=== PATIENT | female | born 1950 | race Caucasian/White ===

== ENCOUNTER 2016-02-18 18:01 | Outpatient (RCR) | payer MEDICARE ==
[~2016-02-18] VITALS: Ht 160 cm; Wt 90.9 kg
[~2016-02-18 18:01] MED LIST: CEPHALEXIN500 M2 PO; CLARITIN 1010 MG/TAB PO; CLARITIN-D 10 M1 T24 PO; DECADRON 4MG TAB4 MG PO; NEULASTA6 MG/0.6 M SC; [UNRECOGNIZED DRUG - OTHER]
[2016-02-18 18:18] VITALS: BP 166/86
[2016-02-19 06:05] VITALS: BP 137/89
--- NOTE | 2016-02-19 07:10 | NUR ---
WHEN FLUSHING LINE WITH SALINE PT REPORTED MILD DISCOMFORT, STATED SHE COULD NOT TASTE SALINE LIKE NORMAL. PT STILL HAS BLOOD RETURN. FLUSHED WITH SALINE AGAIN SLOWLY. STILL UNCOMFORTABLE FOR PT. HEPARINIZED LINE AND DEACCESSED PER PT REQUEST. SMALL 1.5CM AREA OF COOLNESS SUPERIOR TO PORT HUB. PT REPORTS THIS IS WHERE SORENESS IS. POSSIBLE INFILTRATION FROM SALINE FLUSH, DESPITE BLOOD RETURN. PT IS TO RETURN THIS EVENING AGAIN. NURSING WILL REASSESS AT THAT TIME. PT IS AGREEABLE TO THIS PLAN.
[2016-02-19 07:15] VITALS: BP 132/87
[2016-02-19 18:35] VITALS: BP 146/92
[2016-02-19 19:49] VITALS: BP 150/86
[2016-02-20 05:55] VITALS: BP 145/90
[2016-02-20 06:31] VITALS: BP 149/91
[2016-02-20 18:00] VITALS: BP 151/90
[2016-02-20 18:36] VITALS: BP 142/80
[2016-02-21 06:28] VITALS: BP 143/86
[2016-02-21 07:04] VITALS: BP 141/87
[2016-02-21 18:00] VITALS: BP 135/83
[2016-02-21] MEDS ORDERED: ACETAMINOPHEN-H1 TA2 PO (18:17)
[2016-02-21] MEDS ORDERED: CYCLOBENZ5 MG PO (18:19)
[2016-02-22 06:07] VITALS: BP 128/79
[2016-02-22 06:42] VITALS: BP 143/76
[2016-02-22 18:15] VITALS: BP 133/74
[2016-02-23 06:06] VITALS: BP 161/88
[2016-02-23 06:37] VITALS: BP 133/91
--- NOTE | 2016-02-23 06:54 | NUR ---
Patient requested that her port remain accessed until after her follow up appointment at the clinic to see if her IV antibiotic therapy will be continued. Patient instructed to return and notify nursing staff either way. Patient indicates understanding.
[2016-02-23 17:59] VITALS: BP 166/85
[2016-02-23 18:36] VITALS: BP 145/83
[2016-02-24 06:03] VITALS: BP 129/76
[2016-02-24 06:41] VITALS: BP 136/81
[2016-02-24 18:00] VITALS: BP 143/82
[2016-02-25 05:58] VITALS: BP 135/86
[2016-02-25 06:35] VITALS: BP 165/92
[2016-02-25 18:26] VITALS: BP 129/84
[2016-02-25 19:09] VITALS: BP 132/86
[2016-02-26 06:05] VITALS: BP 124/85
[2016-02-26 18:13] VITALS: BP 155/84
[2016-02-26 18:54] VITALS: BP 143/76
[2016-02-27 05:55] VITALS: BP 156/81
[2016-02-27 06:50] VITALS: BP 146/86
[2016-02-27 18:10] VITALS: BP 172/88
[2016-02-27 18:57] VITALS: BP 150/89
[2016-02-28 05:50] VITALS: BP 137/80
[2016-02-28 06:40] VITALS: BP 146/84
[2016-04-10] MEDS ORDERED: PENICILLIN-VK250 MG PO (05:46)
== END 2016-02-28 07:30 | disposition home or self-care (01) ==
LOC: AMSURD 18:01
DX: L03.113 Cellulitis of right upper limb (principal)
CPT/HCPCS: A4301; J0712; J1644

== ENCOUNTER 2016-03-11 19:06 | Outpatient (RCR) | payer MEDICARE ==
[~2016-03-11 19:06] MED LIST changes: -PENICILLIN-VK250 MG PO
--- NOTE | 2016-03-11 20:05 | NUR ---
LAB DRAW OBTAINED FROM PORT START AND DELIVERED TO LAB PERSONNEL.
[2016-03-11 20:25] VITALS: BP 146/86
[2016-03-11 20:55] VITALS: BP 147/85
[2016-03-12 11:56] VITALS: BP 156/92
[2016-03-12 12:19] VITALS: BP 127/83
[2016-03-13 09:15] VITALS: BP 137/86
[2016-03-13 09:49] VITALS: BP 137/86
[2016-03-13 10:01] VITALS: BP 137/80
[2016-03-14 09:34] VITALS: BP 142/77
[2016-03-14 09:40] VITALS: BP 130/70
[2016-03-15 09:00] VITALS: BP 167/69
[2016-03-16 09:00] VITALS: BP 136/78
[2016-03-16 09:35] VITALS: BP 137/79
[2016-03-17 08:56] VITALS: BP 128/84
[2016-03-18 06:45] VITALS: BP 149/94
[2016-03-19 07:46] VITALS: BP 133/76
[2016-03-20 07:52] VITALS: BP 122/85
[2016-03-20 08:40] VITALS: BP 141/77
[2016-03-21 08:56] VITALS: BP 120/69
[2016-03-21 09:29] VITALS: BP 169/87
[2016-03-22 09:02] VITALS: BP 122/73
[2016-03-23 10:12] VITALS: BP 128/76
[2016-03-23 10:13] VITALS: BP 122/77
[2016-03-24 08:50] VITALS: BP 139/83
--- NOTE | 2016-03-24 09:56 | NUR ---
Unable to get enough blood return for lab draw today, lab came down to 101 and krystina blood from peripheral site, patient left before this nurse was able to grab a second set of vital signs, vital signs prior to treatment were stable
[2016-03-25 07:47] VITALS: BP 140/91
[2016-03-25 08:27] VITALS: BP 148/93
[2016-03-26 08:27] VITALS: BP 132/98
[2016-03-26 09:24] VITALS: BP 133/81
[2016-03-27 08:59] VITALS: BP 134/81
[2016-03-27 09:30] VITALS: BP 139/82
[2016-03-28 08:53] VITALS: BP 168/102
[2016-03-28 09:31] VITALS: BP 155/95
[2016-03-29 09:00] VITALS: BP 126/81
[2016-03-29 09:34] VITALS: BP 127/95
[2016-03-30 09:26] VITALS: BP 156/88
[2016-03-30 10:04] VITALS: BP 141/80
[2016-03-31 07:58] VITALS: BP 133/77
[2016-03-31 11:07] VITALS: BP 136/84
[2016-04-01 09:06] VITALS: BP 154/83
[2016-04-01 09:52] VITALS: BP 137/84
[2016-04-02 08:55] VITALS: BP 134/96
[2016-04-03 08:58] VITALS: BP 132/72
[2016-04-03 09:35] VITALS: BP 136/83
[2016-04-04 09:10] VITALS: BP 129/80
[2016-04-04 09:53] VITALS: BP 149/85
[2016-04-05 09:00] VITALS: BP 142/78
[2016-04-05 09:35] VITALS: BP 145/86
[2016-04-06 09:07] VITALS: BP 156/82
[2016-04-06 09:50] VITALS: BP 131/49
[2016-04-07 09:35] VITALS: BP 129/81
[2016-04-07 10:07] VITALS: BP 136/75
[2016-04-08 07:58] VITALS: BP 128/77
--- NOTE | 2016-04-08 08:11 | NUR ---
PATIENT ARRIVES EARLY FOR IV ANTIBIOTICS. SHE HAS AN APPT WITH HER DOCTOR THIS AM AND SHE IS HOPING HE WILL HAVE GOOD NEWS FOR HER AND WILL DISCONTINUE HER OUTPATIENT IV TX. PORT-A-CATH NEEDLE TO BE CHANGED TODAY. WILL OPT TO DC CURRENT ONE AND RE-ACCESS TOMORROW IF NEED TO CONTINUE.
[2016-04-10] MEDS ORDERED: PENICILLIN-VK250 MG PO (05:46)
== END 2016-04-08 09:30 | disposition home or self-care (01) ==
LOC: AMSURD 19:06
DX: L03.113 Cellulitis of right upper limb (principal); A40.8 Other streptococcal sepsis; B95.4 Other streptococcus as the cause of diseases classified elsewhere; Z45.2 Encounter for adjustment and management of vascular access device; R65.20 Severe sepsis without septic shock
CPT/HCPCS: J0696; J1644

== ENCOUNTER → 2016-03-11 | Outpatient (CLI) | payer MEDICARE ==
[~2016-03-11] MED LIST changes: +ACETAMINOPHEN-H1 TA2 PO; +CYCLOBENZ5 MG PO; +PENICILLIN-VK250 MG PO
== END ==
LOC: LAB 10:36
DX: L03.113 Cellulitis of right upper limb (principal)

== ENCOUNTER → 2016-03-19 | Outpatient (CLI) | payer MEDICARE ==
[~2016-03-19] MED LIST changes: +PENICILLIN-VK250 MG PO
== END ==
LOC: LAB 08:03
DX: L03.90 Cellulitis, unspecified (principal)

== ENCOUNTER → 2016-03-24 | Outpatient (CLI) | payer MEDICARE | LOC: LAB 08:55 | DX: C54.1 Malignant neoplasm of endometrium (principal) ==

== ENCOUNTER → 2016-03-25 | Outpatient (CLI) | payer MEDICARE | LOC: LAB 11:10 | DX: L03.90 Cellulitis, unspecified (principal) ==

== ENCOUNTER → 2016-03-30 | Outpatient (CLI) | payer MEDICARE | LOC: RAD 08:54 | DX: C54.1 Malignant neoplasm of endometrium (principal); K43.9 Ventral hernia without obstruction or gangrene | CPT/HCPCS: Q9967 ==

== ENCOUNTER → 2016-03-31 | Outpatient (CLI) | payer MEDICARE | LOC: LAB 07:58 | DX: L03.90 Cellulitis, unspecified (principal) ==

== ENCOUNTER → 2016-04-07 | Outpatient (CLI) | payer MEDICARE | LOC: LAB 09:38 | DX: L03.90 Cellulitis, unspecified (principal) ==

== ENCOUNTER 2016-04-09 21:40 | Emergency (ER) | payer MEDICARE ==
[~2016-04-09 21:40] MED LIST changes: -PENICILLIN-VK250 MG PO
[2016-04-10] MEDS ORDERED: PENICILLIN-VK250 MG PO (05:46)
== END 2016-04-09 23:55 | disposition home or self-care (01) ==
LOC: ED 21:40
DX: I97.2 Postmastectomy lymphedema syndrome (principal); L03.113 Cellulitis of right upper limb; Z85.3 Personal history of malignant neoplasm of breast; Z85.40 Personal history of malignant neoplasm of unspecified female genital organ; Z90.11 Acquired absence of right breast and nipple
CPT/HCPCS: J0696; J1644

== ENCOUNTER → 2016-04-10 | Outpatient (CLI) | payer MEDICARE ==
[~2016-04-10] MED LIST changes: +PENICILLIN-VK250 MG PO
[2016-04-10 18:53] VITALS: BP 130/85
[2016-04-10 19:23] VITALS: BP 131/83
[2016-04-11 19:56] VITALS: BP 137/81
== END ==
LOC: AMSURD 18:30
DX: I97.2 Postmastectomy lymphedema syndrome (principal); L03.113 Cellulitis of right upper limb
CPT/HCPCS: J0696; J1644

== ENCOUNTER → 2016-04-14 | Outpatient (CLI) | payer MEDICARE | LOC: LAB 18:25 | DX: L03.90 Cellulitis, unspecified (principal) ==

== ENCOUNTER → 2016-05-06 | Outpatient (CLI) | payer MEDICARE | LOC: LAB 08:23 | DX: I89.0 Lymphedema, not elsewhere classified (principal) ==

== ENCOUNTER → 2016-07-25 | Outpatient (CLI) | payer MEDICARE ==
[2016-04-15 12:19] VITALS: BP 155/78
== END ==
LOC: LAB 10:10
DX: C54.9 Malignant neoplasm of corpus uteri, unspecified (principal)

== ENCOUNTER → 2016-07-26 | Outpatient (CLI) | payer MEDICARE ==
[2016-04-15 12:19] VITALS: BP 155/78
== END ==
LOC: RAD 09:44
DX: C54.1 Malignant neoplasm of endometrium (principal)
CPT/HCPCS: Q9967

== ENCOUNTER → 2016-11-28 | Outpatient (CLI) | payer MEDICARE ==
[2016-04-15 12:19] VITALS: BP 155/78
== END ==
LOC: RAD 11-23 09:00
DX: C54.1 Malignant neoplasm of endometrium (principal)
CPT/HCPCS: Q9967

== ENCOUNTER → 2016-11-30 | Outpatient (CLI) | payer MEDICARE ==
[2016-04-15 12:19] VITALS: BP 155/78
== END ==
LOC: LAB 07:39
DX: C55 Malignant neoplasm of uterus, part unspecified (principal)

== ENCOUNTER 2017-01-07 08:23 | Outpatient (RCR) | payer MEDICARE ==
[~2017-01-07] VITALS: Ht 160 cm; Wt 90.9 kg
[2017-01-07] MEDS ORDERED: NEURONTIN300 MG/CAP (08:31)
[2017-01-07 08:33] VITALS: BP 131/81
[2017-01-08 08:13] VITALS: BP 138/81
[2017-01-09 08:19] VITALS: BP 158/87
[2017-01-10 08:55] VITALS: BP 128/78
[2017-01-11 08:26] VITALS: BP 133/81
[2017-01-11 09:05] VITALS: BP 144/85
--- NOTE | 2017-01-11 09:05 | NUR ---
Pt leaves facility ambulatory.
[2017-01-12 08:12] VITALS: BP 131/69
[2017-01-12 08:39] VITALS: BP 148/79
[2017-01-13 08:05] VITALS: BP 141/74
[2017-01-14 08:09] VITALS: BP 138/83
[2017-01-15 08:19] VITALS: BP 136/77
[2017-01-15 08:46] VITALS: BP 138/77
[2017-01-16 08:40] VITALS: BP 128/80
[2017-01-16 09:23] VITALS: BP 129/82
== END 2017-01-16 10:00 | disposition home or self-care (01) ==
LOC: AMSURD 08:23
DX: L03.113 Cellulitis of right upper limb (principal); E83.42 Hypomagnesemia
CPT/HCPCS: J0696; J1644

== ENCOUNTER → 2017-01-16 | Outpatient (CLI) | payer MEDICARE ==
[2017-01-15 08:46] VITALS: BP 138/77
[~2017-01-16] MED LIST changes: +NEURONTIN300 MG/CAP
[2017-01-16 11:48] LABS: HEMATOCRIT 39.3 % (37.0-47.0); HEMOGLOBIN 12.6 g/dL (12.5-16.0); RED BLOOD COUNT 3.96 M/mm3 (4.10-5.30); RED CELL DISTRIBUTION WIDTH 13.5 % (11.5-14.5); WHITE BLOOD COUNT 5.3 K/mm3 (4.8-10.8)
== END ==
LOC: LAB 08:51
PROVIDERS: Internal Medicine
DX: L03.90 Cellulitis, unspecified (principal)

== ENCOUNTER → 2017-04-05 | Outpatient (CLI) | payer MEDICARE | LOC: RAD 03-29 09:00 | DX: C54.1 Malignant neoplasm of endometrium (principal); I72.8 Aneurysm of other specified arteries; Z90.49 Acquired absence of other specified parts of digestive tract; Z90.710 Acquired absence of both cervix and uterus | CPT/HCPCS: Q9967 ==

== ENCOUNTER → 2017-10-04 | Outpatient (CLI) | payer MEDICARE ==
[2017-10-04 14:15] LABS: EOS # 0.2 (0.04-0.40); EOS % 3.9 % (1.0-5.0); HEMATOCRIT 40.7 % (37.0-47.0); HEMOGLOBIN 13.2 g/dL (12.5-16.0); LYMPH# 1.3 (1.50-4.00); MEAN CELL VOLUME 100 fl (78-100); MEAN CORPUSCULAR HEMOGLOBIN 32 pg (27-31); MEAN CORPUSCULAR HGB CONC 32 g/dL (33-37); MEAN PLATELET VOLUME 10.3 fl (7.4-10.4); MONO # 0.6 (0.20-0.80); NEU # 3.5 (1.40-6.50); PLATELET COUNT 167 K/mm3 (130-400); RED BLOOD COUNT 4.09 M/mm3 (4.10-5.30); RED CELL DISTRIBUTION WIDTH 13.7 % (11.5-14.5); WHITE BLOOD COUNT 5.6 K/mm3 (4.8-10.8)
[2017-10-04 14:23] LABS: BUN/CREATININE RATIO 22.1 (6.0-26.0); CALCIUM 9.4 mg/dL (8.4-10.2); POTASSIUM 4.3 mmol/L (3.6-5.0); TOTAL BILIRUBIN 1.1 mg/dL (0.2-1.3); TOTAL PROTEIN 7.1 g/dL (6.3-8.2)
== END ==
LOC: LAB 13:59
PROVIDERS: Internal Medicine
DX: C55 Malignant neoplasm of uterus, part unspecified (principal)

== ENCOUNTER → 2017-10-06 | Outpatient (CLI) | payer MEDICARE | LOC: RAD 08:44 | DX: Z08 Encounter for follow-up examination after completed treatment for malignant neoplasm (principal); Z85.42 Personal history of malignant neoplasm of other parts of uterus; Z98.890 Other specified postprocedural states; N32.89 Other specified disorders of bladder; N28.1 Cyst of kidney, acquired; K22.8 Other specified diseases of esophagus; K57.30 Diverticulosis of large intestine without perforation or abscess without bleeding; I72.8 Aneurysm of other specified arteries ==

== ENCOUNTER → 2018-04-19 | Outpatient (CLI) | payer MEDICARE ==
[2018-04-20 11:25] LABS: EOS # 0.2 (0.04-0.40); EOS % 4.3 % (1.0-5.0); HEMATOCRIT 40.1 % (37.0-47.0); HEMOGLOBIN 12.8 g/dL (12.5-16.0); LYMPH# 1.5 (1.50-4.00); MEAN CELL VOLUME 97 fl (78-100); MEAN CORPUSCULAR HEMOGLOBIN 31 pg (27-31); MEAN CORPUSCULAR HGB CONC 32 g/dL (33-37); MEAN PLATELET VOLUME 10.5 fl (7.4-10.4); MONO # 0.5 (0.20-0.80); NEU # 2.6 (1.40-6.50); PLATELET COUNT 154 K/mm3 (130-400); RED BLOOD COUNT 4.12 M/mm3 (4.10-5.30); RED CELL DISTRIBUTION WIDTH 13.5 % (11.5-14.5); WHITE BLOOD COUNT 4.9 K/mm3 (4.8-10.8)
[2018-04-20 12:03] LABS: ALBUMIN 4.1 g/dL (3.5-5.0); CALCIUM 9.6 mg/dL (8.4-10.2); POTASSIUM 4.1 mmol/L (3.6-5.0); TOTAL PROTEIN 7.2 g/dL (6.3-8.2)
== END ==
LOC: LAB 09:49
PROVIDERS: Internal Medicine
DX: C54.1 Malignant neoplasm of endometrium (principal)

== ENCOUNTER → 2018-04-23 | Outpatient (CLI) | payer MEDICARE | LOC: RAD 09:16 | DX: C54.1 Malignant neoplasm of endometrium (principal) | CPT/HCPCS: Q9967 ==

== ENCOUNTER → 2018-10-18 | Outpatient (CLI) | payer MEDICARE | LOC: RAD 08:37 | DX: C54.1 Malignant neoplasm of endometrium (principal); N20.0 Calculus of kidney; N28.1 Cyst of kidney, acquired; K76.0 Fatty (change of) liver, not elsewhere classified; K57.30 Diverticulosis of large intestine without perforation or abscess without bleeding; K43.9 Ventral hernia without obstruction or gangrene; I72.8 Aneurysm of other specified arteries; Z90.710 Acquired absence of both cervix and uterus | CPT/HCPCS: Q9967 ==

== ENCOUNTER → 2018-10-23 | Outpatient (CLI) | payer MEDICARE ==
[2018-10-23 08:36] LABS: EOS # 0.3 (0.04-0.40); EOS % 5.5 % (1.0-5.0); HEMATOCRIT 40.5 % (37.0-47.0); LYMPH# 1.8 (1.50-4.00); MEAN CELL VOLUME 97 fl (78-100); MEAN CORPUSCULAR HEMOGLOBIN 31 pg (27-31); MEAN CORPUSCULAR HGB CONC 32 g/dL (33-37); MEAN PLATELET VOLUME 11.3 fl (7.4-10.4); MONO # 0.6 (0.20-0.80); NEU # 3.1 (1.40-6.50); PLATELET COUNT 175 K/mm3 (130-400); RED BLOOD COUNT 4.17 M/mm3 (4.10-5.30); RED CELL DISTRIBUTION WIDTH 13.9 % (11.5-14.5); WHITE BLOOD COUNT 5.8 K/mm3 (4.8-10.8)
[2018-10-23 08:40] LABS: ALBUMIN 3.6 g/dL (3.4-4.8)
[2018-10-23 08:41] LABS: POTASSIUM 4.2 mmol/L (3.5-5.1)
[2018-10-23 08:42] LABS: CALCIUM 9.3 mg/dL (8.3-10.5)
[2018-10-23 08:43] LABS: TOTAL PROTEIN 6.8 g/dL (6.2-8.1)
[2018-10-23 08:45] LABS: TOTAL BILIRUBIN 1.1 mg/dL (0.2-1.2)
== END ==
LOC: LAB 07:59
PROVIDERS: Internal Medicine
DX: C54.1 Malignant neoplasm of endometrium (principal)

== ENCOUNTER → 2019-01-30 | Outpatient (CLI) | payer MEDICARE | LOC: LAB 15:14 | DX: N30.91 Cystitis, unspecified with hematuria (principal) ==

== ENCOUNTER → 2019-04-11 | Outpatient (CLI) | payer MEDICARE | LOC: LAB 15:00 | DX: C54.1 Malignant neoplasm of endometrium (principal) ==

== ENCOUNTER → 2019-04-15 | Outpatient (CLI) | payer MEDICARE ==
[2019-04-11 15:15] LABS: EOS # 0.2 (0.04-0.40); EOS % 3.3 % (1.0-5.0); HEMATOCRIT 41.3 % (37.0-47.0); HEMOGLOBIN 13.5 g/dL (12.5-16.0); LYMPH# 2.2 (1.50-4.00); MEAN CELL VOLUME 97 fl (78-100); MEAN CORPUSCULAR HEMOGLOBIN 32 pg (27-31); MEAN CORPUSCULAR HGB CONC 33 g/dL (33-37); MEAN PLATELET VOLUME 10.1 fl (7.4-10.4); MONO # 0.5 (0.20-0.80); PLATELET COUNT 172 K/mm3 (130-400); RED BLOOD COUNT 4.26 M/mm3 (4.10-5.30); RED CELL DISTRIBUTION WIDTH 13.2 % (11.5-14.5)
[2019-04-11 15:23] LABS: ALBUMIN 4.1 g/dL (3.4-4.8)
[2019-04-11 15:24] LABS: POTASSIUM 3.9 mmol/L (3.5-5.1)
[2019-04-11 15:25] LABS: CALCIUM 9.3 mg/dL (8.3-10.5)
[2019-04-11 15:26] LABS: TOTAL PROTEIN 7.2 g/dL (6.2-8.1)
[2019-04-11 15:28] LABS: TOTAL BILIRUBIN 1.4 mg/dL (0.2-1.2)
== END ==
LOC: RAD 08:52
PROVIDERS: Internal Medicine
DX: C54.1 Malignant neoplasm of endometrium (principal); N05.9 Unspecified nephritic syndrome with unspecified morphologic changes; Z90.49 Acquired absence of other specified parts of digestive tract
CPT/HCPCS: Q9967

== ENCOUNTER 2019-04-22 18:58 | Emergency (ER) | payer MEDICARE ==
[2019-04-22] MEDS ORDERED: ATORVASTATIN CA10 MG PO (19:08)
[2019-04-22] MEDS ORDERED: OTEZLA30 MG PO (19:08)
[2019-04-22] MEDS ORDERED: VITAMIN D35000 UNIT PO (19:09)
[2019-04-22 20:08] LABS: EOS # 0.2 (0.04-0.40); EOS % 1.2 % (1.0-5.0); HEMATOCRIT 41.4 % (37.0-47.0); HEMOGLOBIN 13.4 g/dL (12.5-16.0); LYMPH# 1.7 (1.50-4.00); MEAN CELL VOLUME 96 fl (78-100); MEAN CORPUSCULAR HEMOGLOBIN 31 pg (27-31); MEAN CORPUSCULAR HGB CONC 32 g/dL (33-37); MEAN PLATELET VOLUME 10.5 fl (7.4-10.4); MONO # 1.2 (0.20-0.80); PLATELET COUNT 182 K/mm3 (130-400); WHITE BLOOD COUNT 12.9 K/mm3 (4.8-10.8)
[2019-04-22 20:17] LABS: NEU # 9.8 (1.40-6.50)
[2019-04-22 20:19] LABS: ALBUMIN 3.8 g/dL (3.4-4.8)
[2019-04-22 20:22] LABS: TOTAL PROTEIN 7.4 g/dL (6.2-8.1)
[2019-04-22 20:24] LABS: TOTAL BILIRUBIN 0.9 mg/dL (0.2-1.2)
[2019-04-22 20:57] LABS: URINE APPEARANCE CLOUDY; URINE BILIRUBIN NEGATIVE (NEGATIVE); URINE BLOOD 50 ery/uL (NEGATIVE); URINE COLOR YELLOW; URINE KETONE NEGATIVE (NEGATIVE); URINE LEUKOCYTE ESTERASE 1+ (NEGATIVE); URINE NITRATE NEGATIVE (NEGATIVE); URINE PROTEIN(semi-quant) 2+ mg/dL (NEGATIVE); URINE UROBILINOGEN NORMAL (NORMAL); URINE WBC 16-30 /hpf (0-3)
[2019-04-22 22:41] VITALS: BP 143/81
== END 2019-04-22 22:30 | disposition short-term general hospital (02) ==
LOC: ED 18:58
PROVIDERS: Nurse Practitioner
DX: N20.0 Calculus of kidney (principal); I10 Essential (primary) hypertension; Z85.038 Personal history of other malignant neoplasm of large intestine; Z85.3 Personal history of malignant neoplasm of breast; Z85.42 Personal history of malignant neoplasm of other parts of uterus; Z90.49 Acquired absence of other specified parts of digestive tract; Z90.710 Acquired absence of both cervix and uterus
CPT/HCPCS: A4216; J0696; J1885; J2405; J3010; J7030; Q9967

== ENCOUNTER → 2019-10-30 | Outpatient (CLI) | payer MEDICARE ==
[~2019-10-30] MED LIST changes: +ATORVASTATIN CA10 MG PO; +OTEZLA30 MG PO; +VITAMIN D35000 UNIT PO
[2019-10-30 13:09] LABS: EOS # 0.2 (0.04-0.40); EOS % 2.3 % (1.0-5.0); HEMATOCRIT 40.2 % (37.0-47.0); HEMOGLOBIN 13.2 g/dL (12.5-16.0); LYMPH# 1.9 (1.50-4.00); MEAN CELL VOLUME 98 fl (78-100); MEAN CORPUSCULAR HEMOGLOBIN 32 pg (27-31); MEAN CORPUSCULAR HGB CONC 33 g/dL (33-37); MEAN PLATELET VOLUME 10.2 fl (7.4-10.4); MONO # 0.7 (0.20-0.80); NEU # 4.5 (1.40-6.50); PLATELET COUNT 192 K/mm3 (130-400); RED BLOOD COUNT 4.09 M/mm3 (4.10-5.30); RED CELL DISTRIBUTION WIDTH 13.7 % (11.5-14.5); WHITE BLOOD COUNT 7.3 K/mm3 (4.8-10.8)
[2019-10-30 13:19] LABS: ALBUMIN 4.1 g/dL (3.4-4.8)
[2019-10-30 13:21] LABS: CALCIUM 9.9 mg/dL (8.3-10.5)
[2019-10-30 13:22] LABS: TOTAL PROTEIN 7.2 g/dL (6.2-8.1)
[2019-10-30 13:24] LABS: TOTAL BILIRUBIN 1.2 mg/dL (0.2-1.2)
== END ==
LOC: RAD 12:49
PROVIDERS: Internal Medicine
DX: Z85.42 Personal history of malignant neoplasm of other parts of uterus (principal); Z90.710 Acquired absence of both cervix and uterus
CPT/HCPCS: Q9967

== ENCOUNTER → 2020-02-18 | Outpatient (CLI) | payer MEDICARE ==
[2020-02-18 14:52] LABS: EOS # 0.3 (0.04-0.40); EOS % 4.3 % (1.0-5.0); HEMATOCRIT 39.9 % (37.0-47.0); HEMOGLOBIN 12.6 g/dL (12.5-16.0); LYMPH# 1.4 (1.50-4.00); MEAN CELL VOLUME 99 fl (78-100); MEAN CORPUSCULAR HEMOGLOBIN 31 pg (27-31); MEAN CORPUSCULAR HGB CONC 32 g/dL (33-37); MEAN PLATELET VOLUME 10.1 fl (7.4-10.4); MONO # 0.5 (0.20-0.80); NEU # 3.7 (1.40-6.50); PLATELET COUNT 168 K/mm3 (130-400); RED BLOOD COUNT 4.05 M/mm3 (4.10-5.30); RED CELL DISTRIBUTION WIDTH 13.3 % (11.5-14.5); WHITE BLOOD COUNT 5.9 K/mm3 (4.8-10.8)
[2020-02-18 14:55] LABS: ALBUMIN 3.9 g/dL (3.4-4.8); POTASSIUM 4.6 mmol/L (3.5-5.1)
[2020-02-18 14:56] LABS: CALCIUM 9.2 mg/dL (8.3-10.5)
[2020-02-18 14:57] LABS: TOTAL PROTEIN 6.5 g/dL (6.2-8.1)
[2020-02-18 14:59] LABS: TOTAL BILIRUBIN 1.3 mg/dL (0.2-1.2)
== END ==
LOC: LAB 14:25
PROVIDERS: Nurse Practitioner
DX: R22.31 Localized swelling, mass and lump, right upper limb (principal)

== ENCOUNTER → 2021-01-06 | Outpatient (CLI) | payer MEDICARE ==
[2021-01-06 10:00] LABS: BASO # 0.03 K/mm3 (0.02-0.10); EOS % 3.1 % (1.0-5.0); HEMATOCRIT 47.1 % (37.0-47.0); HEMOGLOBIN 14.9 g/dL (12.5-16.0); LYMPH# 1.93 K/mm3 (1.50-4.00); MEAN CELL VOLUME 99 fl (78-100); MEAN CORPUSCULAR HEMOGLOBIN 31 pg (27-31); MEAN CORPUSCULAR HGB CONC 32 g/dL (33-37); MEAN PLATELET VOLUME 10.2 fl (7.4-10.4); MONO # 0.56 K/mm3 (0.20-0.80); NEU # 3.62 K/mm3 (1.40-6.50); PLATELET COUNT 184 K/mm3 (130-400); RED BLOOD COUNT 4.76 M/mm3 (4.10-5.30); RED CELL DISTRIBUTION WIDTH 13.2 % (11.5-14.5); WHITE BLOOD COUNT 6.4 K/mm3 (4.8-10.8)
[2021-01-06 10:05] LABS: ALBUMIN 4.3 g/dL (3.4-4.8)
[2021-01-06 10:06] LABS: CALCIUM 10.5 mg/dL (8.3-10.5)
[2021-01-06 10:07] LABS: TOTAL PROTEIN 7.6 g/dL (6.2-8.1)
[2021-01-06 10:09] LABS: TOTAL BILIRUBIN 1.6 mg/dL (0.2-1.2)
== END ==
LOC: LAB 09:18
PROVIDERS: Internal Medicine
DX: E11.9 Type 2 diabetes mellitus without complications (principal); E78.00 Pure hypercholesterolemia, unspecified; E55.9 Vitamin D deficiency, unspecified; M81.6 Localized osteoporosis [Lequesne]

== ENCOUNTER → 2021-05-29 | Outpatient (CLI) | payer MEDICARE ==
[2021-05-29 10:34] LABS: POTASSIUM 4.2 mmol/L (3.5-5.1)
[2021-05-29 10:35] LABS: CALCIUM 10.1 mg/dL (8.3-10.5)
== END ==
LOC: LAB 09:10
DX: I72.8 Aneurysm of other specified arteries (principal); E78.00 Pure hypercholesterolemia, unspecified

== ENCOUNTER 2021-09-16 14:53 | Emergency (ER) | payer MEDICARE ==
[2021-09-16] MEDS ORDERED: GLUCOTROL 5M5 MG/TAB PO (15:08)
[2021-09-16] MEDS ORDERED: MELOXICAM15 MG PO (15:08)
[2021-09-16] MEDS ORDERED: ALENDRONATE SOD70 MG PO (15:08)
[2021-09-16 16:14] LABS: BASO # 0.02 K/mm3 (0.02-0.10); HEMATOCRIT 44.4 % (37.0-47.0); HEMOGLOBIN 14.5 g/dL (12.5-16.0); LYMPH# 0.97 K/mm3 (1.50-4.00); MEAN CELL VOLUME 96 fl (78-100); MEAN CORPUSCULAR HEMOGLOBIN 32 pg (27-31); MEAN CORPUSCULAR HGB CONC 33 g/dL (33-37); MEAN PLATELET VOLUME 10.5 fl (7.4-10.4); MONO # 0.57 K/mm3 (0.20-0.80); PLATELET COUNT 173 K/mm3 (130-400); RED BLOOD COUNT 4.61 M/mm3 (4.10-5.30); RED CELL DISTRIBUTION WIDTH 13.1 % (11.5-14.5); WHITE BLOOD COUNT 10.2 K/mm3 (4.8-10.8)
[2021-09-16 16:21] LABS: ALBUMIN 4.1 g/dL (3.4-4.8)
[2021-09-16 16:23] LABS: CALCIUM 9.5 mg/dL (8.3-10.5)
[2021-09-16 16:24] LABS: TOTAL PROTEIN 7.6 g/dL (6.2-8.1)
[2021-09-16 16:26] LABS: TOTAL BILIRUBIN 1.9 mg/dL (0.2-1.2)
[2021-09-16] MEDS ORDERED: CLINDAMYCIN 300MG PO (16:56)
[2021-09-16 17:08] VITALS: BP 160/81
[2021-09-16 17:23] LABS: ERYTHROCYTE SEDIMENTATION RATE 35 mm/hr (0-30)
== END 2021-09-16 17:09 | disposition home or self-care (01) ==
LOC: ED 14:53
PROVIDERS: Nurse Practitioner Family
DX: A46 Erysipelas (principal); L03.113 Cellulitis of right upper limb; Z87.2 Personal history of diseases of the skin and subcutaneous tissue; Z88.1 Allergy status to other antibiotic agents
CPT/HCPCS: J0696

== ENCOUNTER 2021-11-27 10:27 | Outpatient (RCR) | payer MEDICARE ==
[2021-11-22 17:17] VITALS: BP 169/77
[2021-11-23 17:17] VITALS: BP 145/84
[2021-11-24 15:41] VITALS: BP 152/83
[2021-11-25 17:17] VITALS: BP 150/83
[2021-11-26 16:30] VITALS: BP 147/79
[~2021-11-27] VITALS: Ht 160 cm; Wt 90.9 kg
[~2021-11-27 10:27] MED LIST changes: +ALENDRONATE SOD70 MG PO; +CLINDAMYCIN 300MG PO; +GLUCOTROL 5M5 MG/TAB PO; +MELOXICAM15 MG PO; +VITAMIN D3125 MC2 PO; -VITAMIN D35000 UNIT PO
[2021-11-27 10:30] VITALS: BP 142/95
== END 2021-12-20 | disposition still patient (30) ==
LOC: AMSURD
DX: Z79.899 Other long term (current) drug therapy (principal)
CPT/HCPCS: J0696

== ENCOUNTER → 2024-01-19 | Outpatient (CLI) | payer MEDICARE ==
[2024-01-19 13:53] LABS: BASO # 0.02 K/mm3 (0.02-0.10); EOS % 3.5 % (1.0-5.0); HEMATOCRIT 40.9 % (37.0-47.0); HEMOGLOBIN 13.1 g/dL (12.5-16.0); LYMPH# 1.63 K/mm3 (1.50-4.00); MEAN CELL VOLUME 99 fl (78-100); MEAN CORPUSCULAR HEMOGLOBIN 32 pg (27-31); MEAN CORPUSCULAR HGB CONC 32 g/dL (33-37); MEAN PLATELET VOLUME 10.3 fl (7.4-10.4); MONO # 0.53 K/mm3 (0.20-0.80); NEU # 3.38 K/mm3 (1.40-6.50); PLATELET COUNT 176 K/mm3 (130-400); RED BLOOD COUNT 4.13 M/mm3 (4.10-5.30); WHITE BLOOD COUNT 5.8 K/mm3 (4.8-10.8)
[2024-01-19 14:05] LABS: ALBUMIN 3.9 g/dL (3.4-4.8)
[2024-01-19 14:07] LABS: TOTAL PROTEIN 6.7 g/dL (6.2-8.1)
[2024-01-19 14:09] LABS: TOTAL BILIRUBIN 0.9 mg/dL (0.2-1.2)
== END ==
LOC: LAB 13:35
PROVIDERS: Internal Medicine
DX: C54.1 Malignant neoplasm of endometrium (principal); C50.411 Malignant neoplasm of upper-outer quadrant of right female breast

== ENCOUNTER 2024-05-06 09:41 | Emergency (ER) | payer MEDICARE ==
[~2024-05-06] VITALS: Ht 154.9 cm; Wt 85.5 kg
[2024-05-06] MEDS ORDERED: OZEMPIC0.25 MG/02 SQ (10:01)
[2024-05-06] MEDS ORDERED: SKYRIZI600 MG/10 SQ (10:02)
[2024-05-06 10:33] LABS: BASO # 0.01 K/mm3 (0.02-0.10); EOS # 0.05 K/mm3 (0.04-0.40); EOS % 0.5 % (1.0-5.0); HEMOGLOBIN 15.4 g/dL (12.5-16.0); LYMPH# 1.23 K/mm3 (1.50-4.00); MEAN CELL VOLUME 96 fl (78-100); MEAN CORPUSCULAR HEMOGLOBIN 31 pg (27-31); MEAN CORPUSCULAR HGB CONC 33 g/dL (33-37); MEAN PLATELET VOLUME 9.8 fl (7.4-10.4); MONO # 0.65 K/mm3 (0.20-0.80); NEU # 8.66 K/mm3 (1.40-6.50); PLATELET COUNT 174 K/mm3 (130-400); RED BLOOD COUNT 4.92 M/mm3 (4.10-5.30); RED CELL DISTRIBUTION WIDTH 13.1 % (11.5-14.5); WHITE BLOOD COUNT 10.6 K/mm3 (4.8-10.8)
[2024-05-06 10:45] LABS: ALBUMIN 4.3 g/dL (3.4-4.8)
[2024-05-06 10:47] LABS: CALCIUM 10.1 mg/dL (8.3-10.5)
[2024-05-06 10:48] LABS: TOTAL PROTEIN 7.8 g/dL (6.2-8.1)
[2024-05-06 10:50] LABS: TOTAL BILIRUBIN 2.2 mg/dL (0.2-1.2)
[2024-05-06] MEDS ORDERED: cefTRIAXone 1 G in Water For Injection,Sterile 10 ML IV ONE (12:00)
[2024-05-06 12:46] VITALS: BP 134/83
== END 2024-05-06 12:50 | disposition home or self-care (01) ==
LOC: ED 09:41
PROVIDERS: Physician Assistant
DX: L03.113 Cellulitis of right upper limb (principal); R19.7 Diarrhea, unspecified; R74.8 Abnormal levels of other serum enzymes
CPT/HCPCS: J0696